=== PATIENT | male | born 1945 | race Caucasian/White ===

== ENCOUNTER 2019-10-09 00:24 | Day surgery (SDC) | payer MEDICARE, SELFPAY ==
[2019-10-05 13:29] VITALS: BMI 34.4
[2019-10-09 09:29] VITALS: BP 112/70; PULSE 83; RESP 16; TEMP 37; O2SAT 97; BMI 36.3
--- NOTE | 2019-10-09 09:49 | WPDANESEPPF ---
Anes - Initial Pre Proc Eval Procedure: Operation Date: 10/09/19 11:00 Proposed Procedures p Esophagogastroduodenoscopy - Cj Moe MD Date/Time: 10/09/19 09:49 Surgeon: Cj Moe MD Pre Op Diagnosis: GI Bleed Patient Data Age: 74 Gender: M Height: 5 ft 11 in Weight: 118 kg Last Vital Signs Temp 98.6 F 10/09/19 09:29 Pulse 83 10/09/19 09:29 Resp 16 10/09/19 09:29 BP 112/70 10/09/19 09:29 Pulse Ox 97 10/09/19 09:29 Allergies Allergy/AdvReac Type Severity Reaction Status Date / Time No Known Allergies Allergy Mild Unverified 10/09/19 09:28 Home Medications Medication Instructions Recorded Confirmed Type ascorbic acid (vitamin C) [Vitamin 1 g PO DAILY 10/05/19 10/05/19 History C] aspirin [Adult Low Dose Aspirin] 81 mg PO DAILY 10/05/19 10/05/19 History atorvastatin [Lipitor] 80 mg PO DAILY 10/05/19 10/05/19 History bupropion HCl 75 mg PO DAILY 10/05/19 10/05/19 History clopidogrel [Plavix] 75 mg PO DAILY 10/05/19 10/05/19 History isosorbide mononitrate 30 mg PO DAILY 10/05/19 10/05/19 History latanoprost 1 drp OPHTHALMIC (EYE) DAILY 10/05/19 10/05/19 History lisinopril 20 mg PO DAILY 10/05/19 10/05/19 History omega 5-zns-fcs-fish oil [Fish Oil] 1 cap PO DAILY 10/05/19 10/05/19 History pantoprazole 20 mg PO HS 10/05/19 10/05/19 History ranolazine 500 mg PO Q12H 10/05/19 10/05/19 History timolol 1 drp OPHTHALMIC (EYE) Q12H 10/05/19 10/05/19 History venlafaxine 75 mg PO DAILY 10/05/19 10/05/19 History vitamin E 1,000 unit PO DAILY 10/05/19 10/05/19 History Patient hx anesthesia problems: none Family hx anesthesia problems: none [facility] Past Medical History Medical History (Updated 10/09/19 @ 09:49 by Jim Byrd MD) CAD (coronary artery disease) GERD (gastroesophageal reflux disease) Hyperlipidemia Hypertension Surgical History Surgical History (Updated 10/09/19 @ 09:49 by Jim Byrd MD) Stented coronary artery Anes - Eval Final PreProcedure Day of Procedure 10/09/19 09:49 Patient weight: obese Heart: regular rate and rhythm Lungs: clear to auscultation Airway: Mallampati scale class II Neurological: alert and oriented Last oral intake: >/= 8 hours ASA classification: III Emergent: no Anesthetic plan: proceed Anesthesia type and monitoring: general GIVS and standard monitoring Informed Consent: The patient's anesthetic plan and its attendant risks and benefits were discussed with the patient/family/POA. Questions were solicited and answers provided to the satisfaction of the patient/family/POA.
[2019-10-09] MEDS: LACTATED RINGERS 1,000 ML 150 ML IV CONT (09:54)
--- NOTE | 2019-10-09 10:14 | PM.HPGS ---
History of Present Illness History of Present Illness Consent: Risks, benefits, and alternatives have been discussed and questions answered. Patient agrees to proceed with procedure. Chief complaint: GI Bleed Narrative: Gerard Singh is a 74 year old W male referred for EGD. Patient was vacationing for the 3 weeks ago had the acute onset of diarrhea and melena. He was seen ED emergency room and admitted he states his blood count was low but did not need blood transfusions. He did not have a gastroscopy there. He returned to to the area seen by Dr. hernandez his blood count was still low is placed on iron supplementation. He denied any nonsteroidal inflammatory drugs no prior history of peptic ulcer disease. He has had some and heartburn no dysphagia odynophagia. Patient did have a colonoscopy January of 2019 at which time several tubular adenomas removed. [facility] Past Medical History Medical History (Updated 10/09/19 @ 09:49 by Jim Byrd MD) CAD (coronary artery disease) GERD (gastroesophageal reflux disease) Hyperlipidemia Hypertension Surgical History Surgical History (Updated 10/09/19 @ 09:49 by Jim Byrd MD) Stented coronary artery Meds Home Medications and Allergies Home Medications Medication Instructions Recorded Confirmed Type ascorbic acid (vitamin C) [Vitamin 1 g PO DAILY 10/05/19 10/09/19 History C] aspirin [Adult Low Dose Aspirin] 81 mg PO DAILY 10/05/19 10/09/19 History atorvastatin [Lipitor] 80 mg PO DAILY 10/05/19 10/09/19 History bupropion HCl 75 mg PO DAILY 10/05/19 10/09/19 History clopidogrel [Plavix] 75 mg PO DAILY 10/05/19 10/09/19 History isosorbide mononitrate 30 mg PO DAILY 10/05/19 10/09/19 History latanoprost 1 drp OPHTHALMIC (EYE) DAILY 10/05/19 10/09/19 History lisinopril 20 mg PO DAILY 10/05/19 10/09/19 History omega 2-dju-wif-fish oil [Fish Oil] 1 cap PO DAILY 10/05/19 10/09/19 History pantoprazole 20 mg PO HS 10/05/19 10/09/19 History ranolazine 500 mg PO Q12H 10/05/19 10/09/19 History timolol 1 drp OPHTHALMIC (EYE) Q12H 10/05/19 10/09/19 History venlafaxine 75 mg PO DAILY 10/05/19 10/09/19 History vitamin E 1,000 unit PO DAILY 10/05/19 10/09/19 History Allergies Allergy/AdvReac Type Severity Reaction Status Date / Time No Known Allergies Allergy Mild Unverified 10/09/19 09:28 Vital Signs Vital Signs - 24 hr 10/09/19 09:29 Temperature 37.0 C Pulse Rate 83 Respiratory Rate 16 Blood Pressure 112/70 Pulse Oximetry 97 Exam Const: Orientation/consciousness: patient oriented x3 Resp: Auscultation: clear to auscultation bilaterally Cardio: Rate: regular rate Rhythm: regular rhythm Heart sounds: no murmurs GI: GI Palp: Yes Soft to palpation, No Tenderness to palpation present (GI), Yes No hepatosplenomegaly present and No Palpable mass present Auscultation: normal bowel sounds Neuro: General: patient oriented x3 and no focal motor deficits Extrem: General: no pedal edema Assessment and Plan Additional Plan EGD for evaluation of melena and anemia which has subsequently resolved
[2019-10-09 10:34] VITALS: BP 103/60; PULSE 68; RESP 16; O2SAT 98
[2019-10-09 10:44] VITALS: BP 106/62; PULSE 70; RESP 18; O2SAT 99
[2019-10-09 10:54] VITALS: BP 111/70; PULSE 67; RESP 18; O2SAT 99
== END 2019-10-09 11:01 | disposition home or self-care (01) ==
PROVIDERS: PCP Internal Medicine; Visit Provider Internal Medicine Gastroenterology
PROC: 0DJ08ZZ Inspection of Upper Intestinal Tract, Via Natural or Artificial Opening Endoscopic (ICD-10-PCS; CPT 43235; principal; 2019-10-09 11:00)
DX: K22.2 Esophageal obstruction (principal); K44.9 Diaphragmatic hernia without obstruction or gangrene; K21.0 Gastro-esophageal reflux disease with esophagitis; K31.819 Angiodysplasia of stomach and duodenum without bleeding; K25.7 Chronic gastric ulcer without hemorrhage or perforation; K29.50 Unspecified chronic gastritis without bleeding; I10 Essential (primary) hypertension; I25.10 Atherosclerotic heart disease of native coronary artery without angina pectoris; E78.5 Hyperlipidemia, unspecified; Z79.02 Long term (current) use of antithrombotics/antiplatelets; Z79.82 Long term (current) use of aspirin; E66.9 Obesity, unspecified; Z68.36 Body mass index [BMI] 36.0-36.9, adult
CPT/HCPCS: 43239; 43270; 87081; 88305; J2704; J7120

== ENCOUNTER 2022-05-07 11:03 | Day surgery (SDC) | payer MEDICARE, SELFPAY ==
[2022-03-03 14:47] VITALS: BMI 38.4
[2022-04-23 10:11] VITALS: BMI 35.9
--- NOTE | 2022-05-06 15:35 | PM.HPGS ---
History of Present Illness History of Present Illness Consent: Risks, benefits, and alternatives have been discussed and questions answered. Patient agrees to proceed with procedure. Chief complaint: History of polyps Narrative: Gerard Singh is a 77 year old male Referred for colon cancer screening. He does have a history of colon polyps. His last colonoscopy was a little over 5 years ago. Review of Systems Review of Systems: All systems reviewed & are unremarkable except as noted in HPI and below PMFSH Past Medical History Medical History CAD (coronary artery disease) GERD (gastroesophageal reflux disease) Hyperlipidemia Hypertension Surgical History Surgical History Stented coronary artery Social History Social History Smoking status: Former smoker Alcohol intake: current Substance use: never Substance use type: does not use Living arrangements: with family Spiritual care concerns: No Meds Home Medications and Allergies Home Medications Medication Instructions Recorded Confirmed Type ascorbic acid (vitamin C) 1,000 mg 1 g PO DAILY 10/05/19 05/07/22 History tablet (Vitamin C) aspirin 81 mg tablet,delayed 81 mg PO DAILY 10/05/19 05/07/22 History release (Adult Low Dose Aspirin) atorvastatin 80 mg tablet (Lipitor) 80 mg PO BID 10/05/19 05/07/22 History bupropion HCl 75 mg tablet 150 mg PO DAILY 10/05/19 05/07/22 History isosorbide mononitrate 30 mg 30 mg PO DAILY 10/05/19 05/07/22 History tablet,extended release 24 hr latanoprost 0.005 % eye drops 1 drp ophthalmic (eye) DAILY 10/05/19 05/07/22 History lisinopril 20 mg tablet 20 mg PO DAILY 10/05/19 05/07/22 History omega 1-fcv-tge-fish oil 1,000 mg 1 cap PO DAILY 10/05/19 05/07/22 History (120 mg-180 mg) capsule (Fish Oil) pantoprazole 20 mg tablet,delayed 20 mg PO HS 10/05/19 05/07/22 History release ranolazine 500 mg tablet,extended 500 mg PO Q12H 10/05/19 05/07/22 History release,12 hr timolol 0.25 % eye drops 1 drp ophthalmic (eye) Q12H 10/05/19 05/07/22 History venlafaxine 75 mg capsule,extended 150 mg PO DAILY 10/05/19 05/07/22 History release 24 hr vitamin E 670 mg (1,000 unit) 1,000 unit PO DAILY 10/05/19 05/07/22 History capsule diltiazem HCl 240 mg 240 mg PO DAILY 05/07/22 05/07/22 History capsule,extended release 24 hr (Cardizem CD) Allergies Allergy/AdvReac Type Severity Reaction Status Date / Time No Known Allergies Allergy Mild Verified 05/07/22 11:21 Exam Const: General: alert Orientation/consciousness: patient oriented x3 Resp: Auscultation: clear to auscultation bilaterally Cardio: Rhythm: regular rhythm GI: GI Palp: Yes Soft to palpation and No Tenderness to palpation present (GI) Neuro: General: patient oriented x3 Assessment and Plan Assessment and plan (1) Colon cancer screening: Code(s): Z12.11 - Encounter for screening for malignant neoplasm of colon Status: Acute Assessment and Plan: Colonoscopy with possible biopsy or polypectomy or cautery or injection of substances.
[2022-05-07 11:29] VITALS: BP 110/72; PULSE 96; RESP 16; TEMP 37; O2SAT 98; BMI 35.2
--- NOTE | 2022-05-07 11:36 | WPDANESEPPF ---
Anes - Initial Pre Proc Eval Procedure: Operation Date: 05/07/22 13:00 Proposed Procedures p Screening Colonoscopy - Abram Ruiz MD Date/Time: 05/07/22 11:36 Surgeon: Abram Ruiz MD Pre Op Diagnosis: History of polyps Patient Data Age: 77 Gender: M Height: 1.8 m Weight: 114.5 kg Last Vital Signs Temp 37.0 C 05/07/22 11:29 Pulse 96 05/07/22 11:29 Resp 16 05/07/22 11:29 BP 110/72 05/07/22 11:29 Pulse Ox 98 05/07/22 11:29 O2 Del Method Room Air 05/07/22 11:29 Allergies Allergy/AdvReac Type Severity Reaction Status Date / Time No Known Allergies Allergy Mild Verified 05/07/22 11:21 Home Medications Medication Instructions Recorded Confirmed Type ascorbic acid (vitamin C) 1,000 mg 1 g PO DAILY 10/05/19 05/07/22 History tablet (Vitamin C) aspirin 81 mg tablet,delayed 81 mg PO DAILY 10/05/19 05/07/22 History release (Adult Low Dose Aspirin) atorvastatin 80 mg tablet (Lipitor) 80 mg PO BID 10/05/19 05/07/22 History bupropion HCl 75 mg tablet 150 mg PO DAILY 10/05/19 05/07/22 History isosorbide mononitrate 30 mg 30 mg PO DAILY 10/05/19 05/07/22 History tablet,extended release 24 hr latanoprost 0.005 % eye drops 1 drp ophthalmic (eye) DAILY 10/05/19 05/07/22 History lisinopril 20 mg tablet 20 mg PO DAILY 10/05/19 05/07/22 History omega 4-jvm-jaz-fish oil 1,000 mg 1 cap PO DAILY 10/05/19 05/07/22 History (120 mg-180 mg) capsule (Fish Oil) pantoprazole 20 mg tablet,delayed 20 mg PO HS 10/05/19 05/07/22 History release ranolazine 500 mg tablet,extended 500 mg PO Q12H 10/05/19 05/07/22 History release,12 hr timolol 0.25 % eye drops 1 drp ophthalmic (eye) Q12H 10/05/19 05/07/22 History venlafaxine 75 mg capsule,extended 150 mg PO DAILY 10/05/19 05/07/22 History release 24 hr vitamin E 670 mg (1,000 unit) 1,000 unit PO DAILY 10/05/19 05/07/22 History capsule diltiazem HCl 240 mg 240 mg PO DAILY 05/07/22 05/07/22 History capsule,extended release 24 hr (Cardizem CD) Patient hx anesthesia problems: none Family hx anesthesia problems: none Results Review: All pre-operative results and documents have been reviewed as part of the pre-operative evaluation. [facility] Past Medical History Medical History CAD (coronary artery disease) GERD (gastroesophageal reflux disease) Hyperlipidemia Hypertension Surgical History Surgical History Stented coronary artery Social History Social History Smoking status: Former smoker Alcohol intake: current Substance use: never Substance use type: does not use Living arrangements: with family Spiritual care concerns: No Anes - Eval Final PreProcedure Day of Procedure 05/07/22 11:36 Patient weight: obese Heart: regular rate and rhythm Lungs: clear to auscultation Airway: Mallampati scale class II Neurological: alert and oriented Last oral intake: >/= 8 hours ASA classification: III Emergent: no Anesthetic plan: proceed Anesthesia type and monitoring: general GIVS and standard monitoring Results Review: All pre-operative results and documents have been reviewed as part of the pre-operative evaluation. Informed Consent: The patient's anesthetic plan and its attendant risks and benefits were discussed with the patient/family/POA. Questions were solicited and answers provided to the satisfaction of the patient/family/POA.
[2022-05-07] MEDS: LACTATED RINGERS 1,000 ML 150 ML IV CONT (11:49)
[2022-05-07 12:10] VITALS: BP 100/61; PULSE 81; RESP 16; O2SAT 98
[2022-05-07 12:20] VITALS: BP 98/66; PULSE 76; RESP 20; O2SAT 98
[2022-05-07 12:30] VITALS: BP 108/68; PULSE 85; RESP 20; O2SAT 98
--- NOTE | 2022-05-07 12:37 | WPDANESPN ---
Anes - Prog Note Post-Op Date/Time: 05/07/22 12:37 Cardiovascular status: normal Respiratory status: normal Airway patency: baseline Mental status: baseline Post-Op hydration status: normal Vital Signs: Last Vital Signs Temp 37.0 C 05/07/22 11:29 Pulse 85 05/07/22 12:30 Resp 20 05/07/22 12:30 BP 108/68 05/07/22 12:30 Pulse Ox 98 05/07/22 12:30 O2 Del Method Room Air 05/07/22 12:30 Pain Score (VAS): 0 I/O: Intake & Output 05/06/22 05/07/22 05/07/22 23:59 07:59 15:59 Intake Total 300 Balance 300 Patient Feedback: Patient satisfied with anesthetic care.
== END 2022-05-07 12:40 | disposition home or self-care (01) ==
PROVIDERS: PCP Internal Medicine; Visit Provider Internal Medicine Gastroenterology
PROC: 0DJD8ZZ Inspection of Lower Intestinal Tract, Via Natural or Artificial Opening Endoscopic (ICD-10-PCS; CPT 45378; principal; 2022-05-07 13:00)
DX: Z12.11 Encounter for screening for malignant neoplasm of colon (principal)
CPT/HCPCS: 45380

== ENCOUNTER 2022-05-07 13:00 | Outpatient (NON) | payer MEDICARE, SELFPAY | END 2022-05-07 13:01 | disposition home or self-care (01) | LOC: ANHLAB 05-08 08:08 | PROVIDERS: PCP Internal Medicine; Visit Provider Internal Medicine Gastroenterology | DX: K63.5 Polyp of colon (principal) | CPT/HCPCS: 88305 ==